=== PATIENT | male | born 1985 | race Caucasian/White ===

== ENCOUNTER 2017-12-28 20:18 | Emergency (ER) | payer MEDICAID, SELFPAY ==
[2017-12-28 20:19] VITALS: BP 146/97; PULSE 95; RESP 18; TEMP 36.7; O2SAT 98; BMI 25.1
--- NOTE | 2017-12-28 20:27 | EKG12_ITS ---
Test Reason : Blood Pressure : / mmHG Vent. Rate : 087 BPM Atrial Rate : 087 BPM P-R Int : 180 ms QRS Dur : 108 ms QT Int : 350 ms P-R-T Axes : 038 009 047 degrees QTc Int : 421 ms Normal sinus rhythm Normal ECG Confirmed by CECELIA BRENNER, YESIKA ([id number]), editor managing director ZANDER MASON ([id number]) on 01/07/2018 6:54:17 PM Referred By: Confirmed By:YESIKA RAI MD
--- NOTE | 2017-12-28 20:27 | RAD_ITS ---
STUDY: X-RAY CHEST REASON FOR EXAM: Male, 32 years old. TECHNIQUE: A single frontal view of the chest was obtained. COMPARISON: July 22, 2016 FINDINGS: The lungs are adequately aerated. There are no focal airspace opacities. There is no demonstrated pleural abnormality. The cardiac silhouette is normal in size. The mediastinum and hilar regions are unremarkable. Normal visualized pulmonary arteries. Normal visualized aortic arch and descending thoracic aorta. The thoracic spine is unremarkable. The visualized ribs, clavicles, and shoulders are unremarkable. There is no demonstrated abnormality of the visualized upper abdomen. RAD/Chest 1 View (Portable) IMPRESSION: No acute cardiopulmonary abnormalities. Electronically Signed: Jessie Meng MD at 21:23 EDT Tel Direct: [phone], Service support ,
[2017-12-28 20:44] LABS: Absolute Lymphocyte Count 2.65 X10^3/ul (0.83-4.51); Absolute Neutrophil Count 4.4 X10^3/uL (2.0-7.7); Basophil# 0.03 X10^3/uL; Basophil% 0.4 % (0-1); Eosinophils% 2.6 % (0-5); Hematocrit 45.3 % (40-54); Hemoglobin 15.7 g/dl (13.0-16.5); Lymphocyte # 2.65 X10^3/ul (4.0); Mean Corp Hgb Conc 34.7 g/gl (32-36); Mean Corpuscular Hgb 30.4 pg (27.0-32.0); Mean Corpuscular Volume 87.6 fL (80-94); Mean Platelet Vol. 10.7 fl (6.2-12.0); Monocyte# 0.52 X10^3/uL; Monocyte% 6.7 % (0-10); Neutrophil # 4.39 X10^3/uL (2.7-7.7); Neutrophil % 56.3 % (47-70); Platelet Count 251 K/mm3 (150-450); RBC Distribution Width CV 12.7 % (11.6-14.6); Red Blood Count 5.17 M/mm3 (4.6-6.2); White Blood Count 7.8 K/mm3 (4.4-11.0)
[2017-12-28 20:47] LABS: POSITIVE COUNT NO; POSITIVE DIFFERENTIAL NO; POSITIVE MORPHOLOGY NO
[2017-12-28 20:59] LABS: Anion Gap 9 (5-15); BUN 5 mg/dL (7-18); BUN/Creat Ratio 4.1 RATIO (10-20); Calcium,Total 8.7 mg/dL (8.5-10.1); Chloride 106 mmol/L (98-107); Creatinine, Serum 1.21 mg/dL (0.70-1.30); EST Glomerular Filtration Rate 73 mL/min (>60); Est Glom Filt Rate - Afr Amer 88 mL/min (>60); Estimated Creatinine Clearance 91.62 ml/min; Glucose 122 mg/dL (74-106); Potassium 3.3 mmol/L (3.5-5.1); Sodium Level 138 mmol/L (136-145)
[2017-12-28 22:21] VITALS: BP 123/80; PULSE 72; RESP 16; O2SAT 99
--- NOTE | 2017-12-28 22:39 | ED.VISSUMM ---
- ER Visit Summary Date of Service: 12/28/17 Chief Complaint: Chest pain History of Present Illness: The patient is a 32 M complaining of intermittent chest pain for months. Not associated with exertion. No history of DVT or PE. No hemoptysis. Not pleuritic. Not associated with exertion. No recent travel, surgery or mobilization. Patient does have a history of high cholesterol. And a family history of cardiac disease and his dad thinks was below 55. He is also a smoker. He has never had a stress test or cardiac catheterization. Physical Examination: Well-appearing young male. Vital signs are stable afebrile. Pulse ox 98% on room air no signs of hypoxia. HEENT exam unremarkable. Neck nontender no JVD. Lungs clear to auscultation bilaterally. Heart regular rate and rhythm no murmur. Rate in the 90s. Chest wall nontender. No ecchymosis or bruising. No subcu air. Abdomen is soft and nontender. Normal bowel sounds no peritoneal signs. Moving all 4 extremities. Neurovascular intact. Equal symmetrical radial pulses. Calves nontender without edema., Bilateral dorsi plantar flexion. Neurologically is awake alert without focal motor deficits. Back exam normal. Test Results: EKG sinus rhythm rate 87 with no acute signs of [place] or ischemia. Chest x-ray portable one view shows normal cardiac silhouette and mediastinum no acute abnormality read both by myself and radiologist. CBC normal. BMP shows potassium of 3.3. Creatinine 1.2. Normal anion gap. Troponin normal. Emergency Department Course and Treatment: Patient's history is atypical. This is not exertional chest pain. He has no risk factors for DVT or PE. His exam is unremarkable. His workup is negative. On repeat exam he is doing well at 2238. I discussed all test results with him. He is comfortable being discharged home with outpatient follow-up. Treatment Plan: Follow-up with your primary care physician for atypical chest pain. Disposition: Discharge Impression: Acute atypical chest pain of uncertain etiology This note was generated with [employer] dictation software. It may contain incorrect words, spelling, and punctuation that were not noted in review of the chart prior to signing ED Disposition - Plan for ED Patient: Chief Complaint: Chest Pain Referrals: Renetta Mccann NP-C [Primary Care Provider] -
--- NOTE | 2017-12-28 22:43 | ED.DCSUM_ITS ---
- ER Visit Summary Date of Service: 12/28/17 Chief Complaint: Chest pain History of Present Illness: The patient is a 32 M complaining of intermittent chest pain for months. Not associated with exertion. No history of DVT or PE. No hemoptysis. Not pleuritic. Not associated with exertion. No recent travel, surgery or mobilization. Patient does have a history of high cholesterol. And a family history of cardiac disease and his dad thinks was below 55. He is also a smoker. He has never had a stress test or cardiac catheterization. Physical Examination: Well-appearing young male. Vital signs are stable afebrile. Pulse ox 98% on room air no signs of hypoxia. HEENT exam unremarkable. Neck nontender no JVD. Lungs clear to auscultation bilaterally. Heart regular rate and rhythm no murmur. Rate in the 90s. Chest wall nontender. No ecchymosis or bruising. No subcu air. Abdomen is soft and nontender. Normal bowel sounds no peritoneal signs. Moving all 4 extremities. Neurovascular intact. Equal symmetrical radial pulses. Calves nontender without edema., Bilateral dorsi plantar flexion. Neurologically is awake alert without focal motor deficits. Back exam normal. Test Results: EKG sinus rhythm rate 87 with no acute signs of [place] or ischemia. Chest x-ray portable one view shows normal cardiac silhouette and mediastinum no acute abnormality read both by myself and radiologist. CBC normal. BMP shows potassium of 3.3. Creatinine 1.2. Normal anion gap. Troponin normal. Emergency Department Course and Treatment: Patient's history is atypical. This is not exertional chest pain. He has no risk factors for DVT or PE. His exam is unremarkable. His workup is negative. On repeat exam he is doing well at 2238. I discussed all test results with him. He is comfortable being discharged home with outpatient follow-up. Treatment Plan: Follow-up with your primary care physician for atypical chest pain. Disposition: Discharge Impression: Acute atypical chest pain of uncertain etiology This note was generated with [employer] dictation software. It may contain incorrect words, spelling, and punctuation that were not noted in review of the chart prior to signing ED Disposition - Plan for ED Patient: Chief Complaint: Chest Pain Referrals: Renetta Mccann NP-C [Primary Care Provider] -
--- NOTE | 2017-12-28 22:43 | ED.DEP ---
ED Disposition - Plan for ED Patient: Disposition: Home or Assisted Living Chief Complaint: Chest Pain Instructions: ED Chest Pain Atypical Unkn Cause Referrals: Renetta Mccann NP-C [Primary Care Provider] - As soon as possible Additional Instructions: All your tests tonight were normal. Call follow-up the primary care physician. Return to ER if you are feeling a lot worse.
[2017-12-28 22:51] VITALS: BP 120/77; PULSE 58; RESP 21; O2SAT 100
--- NOTE | 2017-12-28 22:52 | ED.RN ---
IV DC'ED, CATHETER INTACT, SMALL GAUZE DRESSING PLACED. DISCHARGE INSTRUCTIONS GIVEN TO AND REVIEWED WITH PATIENT, PATIENT DENIES QUESTIONS OR CONCERNS AND VOICES UNDERSTANDING OF DISCHARGE INSTRUCTIONS. PT AMBULATES OUT OF ROOM WITHOUT DIFFICULTY.
== END 2017-12-28 22:53 | disposition home or self-care (01) ==
PROVIDERS: Emergency Provider Emergency Medicine; Family Provider Nurse Practitioner Family; PCP Nurse Practitioner Family
DX: R07.89 Other chest pain (principal); E78.00 Pure hypercholesterolemia, unspecified; F17.200 Nicotine dependence, unspecified, uncomplicated; Z79.899 Other long term (current) drug therapy
CPT/HCPCS: 71045; 80048; 84484; 85025; 93005; 99284; A4216

== ENCOUNTER 2021-12-26 00:59 | Emergency (ER) | payer MEDICAID, SELFPAY ==
[2021-12-26 01:00] VITALS: BP 138/100; RESP 97; TEMP 36.7; O2SAT 97; BMI 26.7
--- NOTE | 2021-12-26 01:10 | RAD_ITS ---
EXAM: XR CHEST, 2 VIEWS CLINICAL INDICATION: chest pain TECHNIQUE: Frontal and lateral views of the chest. This report was created using [employer] report generation technology. COMPARISON: 12/28/2017. FINDINGS: LUNGS AND PLEURAL SPACES: Unremarkable. No consolidation or edema. No pneumothorax. No effusion. HEART: Unremarkable. Cardiac silhouette not enlarged. MEDIASTINUM: Central airways and mediastinal contour are unremarkable. BONES/JOINTS: Unremarkable. SOFT TISSUES: Unremarkable. RAD/Chest PA and Lateral IMPRESSION: No radiographic evidence of acute cardiopulmonary disease. Electronically Signed: Wiliam Mares MD at 2:06 EDT ,
--- NOTE | 2021-12-26 01:11 | EKG12_ITS ---
Test Reason : CP Blood Pressure : / mmHG Vent. Rate : 089 BPM Atrial Rate : 089 BPM P-R Int : 188 ms QRS Dur : 112 ms QT Int : 362 ms P-R-T Axes : 032 -07 027 degrees QTc Int : 440 ms Normal sinus rhythm Normal ECG Confirmed by TALAT BRENNER, ELENA ([id number]), publication editor DES LONDON ([id number]) on 12/26/2021 9:06:23 AM Referred By: EDGAR Confirmed By:ELENA GILLILAND MD
[2021-12-26 01:33] LABS: Absolute Lymphocyte Count 3.24 X10^3/uL (0.83-4.51); Absolute Neutrophil Count 4.5 X10^3/uL (2.0-7.7); Basophil# 0.04 X10^3/uL; Basophil% 0.5 % (0-1); Eosinophil# 0.23 X10^3/uL; Eosinophils% 2.6 % (0-5); Hemoglobin 14.5 g/dL (13.0-16.5); Lymphocyte # 3.24 X10^3/ul (0.83-4.51); Lymphocyte % 37.2 % (19-41); Mean Corp Hgb Conc 34.5 g/dL (32-36); Mean Corpuscular Hgb 30.5 pg (27.0-32.0); Mean Corpuscular Volume 88.2 fL (80-94); Mean Platelet Vol. 10.4 fl (6.2-12.0); Monocyte# 0.69 X10^3/uL; Monocyte% 7.9 % (0-10); NRBC Flagged by Analyzer 0 % (0-5); Neutrophil # 4.48 X10^3/uL (2.7-7.7); Neutrophil % 51.6 % (47-70); Platelet Count 250 K/mm3 (150-450); RBC Distribution Width CV 12.4 % (11.6-14.6); RBC Distribution Width SD 40.3 fl (35.1-43.9); Red Blood Count 4.76 M/mm3 (4.6-6.2); White Blood Count 8.7 K/mm3 (4.4-11.0)
[2021-12-26 01:58] LABS: ALB/GLOB Ratio 1.1 RATIO (0.9-2.4); AST(SGOT) 23 U/L (15-37); Alanine Aminotransfer ALT/SGPT 47 U/L (16-61); Albumin, Serum 3.7 g/dL (3.2-5.0); Alkaline Phosphatase 76 U/L (45-117); Anion Gap 7 (5-15); BUN 11 mg/dL (7-18); Calcium,Total 8.8 mg/dL (8.5-10.1); Chloride 103 mmol/L (98-107); Creatinine, Serum 1.22 mg/dL (0.70-1.30); EST Glomerular Filtration Rate 70 mL/min (>60); Est Glom Filt Rate - Afr Amer 85 mL/min (>60); Estimated Creatinine Clearance 90.11 ml/min; Globulin 3.5 g/dL (2.2-4.2); Glucose 127 mg/dL (74-106); Protein, Total 7.2 g/dL (6.4-8.2); Sodium Level 137 mmol/L (136-145); Troponin-I HS 3 pg/mL (3.0-78.0)
--- NOTE | 2021-12-26 02:07 | CT_ITS ---
EXAM: CT HEAD WITHOUT INTRAVENOUS CONTRAST CLINICAL INDICATION: headache TECHNIQUE: Multiple axial images were obtained of the head without intravenous contrast. This CT exam was performed using one or more of the following dose reduction techniques: automated exposure control, adjustment of the mA and/or kV according to patient size, and/or use of iterative reconstruction technique. This report was created using [employer] report generation technology. RADIATION DOSE: CTDIvol = 44.99 mGy, DLP = 829.85 mGy-cm. COMPARISON: None. FINDINGS: BRAIN AND EXTRA-AXIAL SPACES: Unremarkable. No intra- or extra-axial hemorrhage. No evidence of acute infarct. No intracranial mass or mass effect. There is preservation of the jerez/white matter interface. Posterior fossa structures are unremarkable. Ventricles are appropriate for age. No hydrocephalus. Basal cisterns are patent. BONES/JOINTS: Unremarkable. No discrete lytic or blastic abnormalities. SINUSES: Unremarkable as visualized. Clear. MASTOID AIR CELLS: Unremarkable. Clear. ORBITS: Visualized globes, extraocular muscles, optic nerves and retrobulbar fat appear unremarkable. CT/Brain/Head without Contrast IMPRESSION: Negative head/brain CT without intravenous contrast. Electronically Signed: Wiliam Mares MD at 2:32 EDT ,
[2021-12-26 03:00] VITALS: BP 134/93; PULSE 64; RESP 16; O2SAT 97
[2021-12-26 03:19] LABS: Troponin-I HS 5 pg/mL (3.0-78.0)
[2021-12-26] MEDS: Potassium Chloride Oral Tablet 20 MEQ 40 MEQ PO (03:22)
[2021-12-26 03:23] VITALS: BP 129/84; PULSE 88; RESP 18; O2SAT 99
--- NOTE | 2021-12-26 03:49 | EDS_ITS ---
HPI History of Present Illness Chief Complaint: Chest Pain Informant: patient Narrative Narrative: Patient is a 36-year-old male reports a remote history of A. fib after he passed out getting stitches, presenting with chest tightness. Patient says he is having intermittent episodes of a squeezing pain in his chest for the past month. Sometimes it happens at rest and sometimes with exertion. He also notes that he has had decreased stamina with his daily activities. He gets intermittent sharp pains in his temples. He denies any shortness of breath with laying down. Denies any palpitations or racing heartbeat. He states while at work today he had an episode where his left leg felt numb and he felt dizzy. This resolved on its own. Patient came to the emergency room to be evaluated further. Patient's notes that he has been having more stress lately and his left him within the last 3 weeks. Not sure if that is related. No other complaints at this time. PFSH PFS Home Medications NK 12/26/21 [History Last Taken Unknown] Allergy/AdvReac Type Severity Reaction Status Date / Time naproxen Allergy Vomiting Verified 12/26/21 01:04 Social History Smoking Status: Current every day smoker tobacco type: cigarettes ROS ROS ED Constitutional Constitutional ED: Denies chills or fever(s) Eyes Eyes: Denies blurry vision or change in vision Cardiovascular Cardiovascular: Reports as per HPI and chest pain Respiratory/Chest Respiratory/Chest: Reports dyspnea on exertion Gastrointestinal Gastrointestinal: Denies abdominal pain, nausea or vomiting Genitourinary Genitourinary ED: Denies dysuria Musculoskeletal Musculoskeletal: Denies arthralgias or myalgias Integumentary Denies rash Neurologic Neurologic: Reports headache(s); Denies paresthesias or weakness Psychiatric Psychiatric: Denies depression EXAM Physical Exam Const Vital Signs: 12/26/21 01:00 12/26/21 01:28 12/26/21 03:00 Temperature 98.1 F Temperature Source Temporal Pulse Rate 64 Respiratory Rate 97 H 16 Respiratory Effort Normal Non-Labored Blood Pressure 138/100 H 134/93 H Blood Pressure Mean 112 106 Pulse Ox 97 97 Oxygen Delivery Method Room Air Room Air 12/26/21 03:23 Temperature Temperature Source Pulse Rate 88 Respiratory Rate 18 Respiratory Effort Blood Pressure 129/84 H Blood Pressure Mean 99 Pulse Ox 99 Oxygen Delivery Method Room Air Positive well nourished and well developed General Appearance ED: well developed and NAD HEENT normocephalic and atraumatic Eyes PERRL and EOMs intact bilaterally Neck supple Chest Wall inspection of chest normal and palpation of chest normal Resp normal respiratory effort and clear to auscultation bilaterally Effort and Inspection: Negative for respiratory distress Cardio regular rate, regular rhythm and no murmurs GI normal to inspection, nondistended, normoactive bowel sounds Back/Spine no CVA tenderness Extremity normal to inspection General Extremety ED: Negative for edema or tenderness General Extremity: Negative for edema Neuro oriented x3 Sensorium / Orientation: awake and alert Motor Exam: Negative for general weakness Psych mental status grossly normal Mood & Affect: Negative for depressed Skin no rashes or lesions noted and no wounds Heart Score History: Slightly/Non-Suspicious ECG: Normal Age: </= 45 years Risk Factors: 1 or 2 Risk Factors Troponin: </= Normal Limit Score: 1 MDM MDM MDM Narrative Medical decision making narrative: Patient evaluated after an episode of left leg numbness, dizziness and intermittent chest pain for the past month. Patient is normal sinus rhythm in the emergency room. He appears nontoxic in no acute distress. He is PE RC negative I do not suspect PE as a cause of his symptoms. CBC and CMP are largely normal. His potassium is 3.0 and he is given oral potassium in the ER. He is mildly hyperglycemic with a glucose of 127. High since he troponin is 3 and 5. Chest x-rays not show any acute process. Head CT obtained given patient's vague symptoms and headache for the past month. This is negative for acute process. No signs of bleed, hydrocephalus or space- occupying mass. Patient counseled the exact cause of his symptoms is not clear however I believe he is safe to follow-up outpatient. Lab Data Attestation: I reviewed the patient's lab results. Labs: Laboratory Results - last 24 hr 12/26/21 12/26/21 12/26/21 01:30 01:30 02:50 WBC 8.7 RBC 4.76 Hgb 14.5 Hct 42.0 MCV 88.2 MCH 30.5 MCHC 34.5 RDW Std Deviation 40.3 RDW Coeff of Maddie 12.4 Plt Count 250 MPV 10.4 Immature Gran % (Auto) 0.200 Neut % (Auto) 51.6 Lymph % (Auto) 37.2 [place] % (Auto) 7.9 Eos % (Auto) 2.6 Baso % (Auto) 0.5 Absolute Neuts (auto) 4.5 Absolute Lymphs (auto) 3.24 Nucleated RBC % 0 Sodium 137 Potassium 3.0 L Chloride 103 Carbon Dioxide 27.0 Anion Gap 7 BUN 11 Creatinine 1.22 Estim Creat Clear Calc 90.11 Est GFR (MDRD) Af Amer 85 Est GFR (MDRD) Non-Af 70 BUN/Creatinine Ratio 9.0 L Glucose 127 H Calcium 8.8 Total Bilirubin 0.80 AST 23 ALT 47 Alkaline Phosphatase 76 Troponin I High Sens 3 5 Total Protein 7.2 Albumin 3.7 Globulin 3.5 Albumin/Globulin Ratio 1.1 Radiography Chest X-Ray - ED: 2 View, Read by ED Physician, Read by Radiologist and No Acute Disease Diagnostic Testing: Clinical Impression(s) from Imaging Studies Chest X-Ray 12/26/21 01:10 IMPRESSION: No radiographic evidence of acute cardiopulmonary disease. Electronically Signed: Wiliam Mares MD at 2:06 EDT , Brain CT 12/26/21 02:07 IMPRESSION: Negative head/brain CT without intravenous contrast. Electronically Signed: Wiliam Mares MD at 2:32 EDT , Rhythm Strip Rhythm Strip: Sinus Rhythm Rate: 89 Ectopy: None EKG Initial EKG: Attestation: I personally reviewed and interpreted this EKG as follows: Interpretation: Sinus Rhythm Comments: Normal sinus rhythm at a rate of 89 Normal axis Normal intervals Normal ST segments No change compared to prior EKG Discharge Plan Triage Chief Complaint: Chest Pain ED Provider: Kendra Yancey Dx/Rx/DC Orders Clinical Impression: Chest pain of unknown etiology, Hypokalemia Instructions: ED Chest Pain, Uncertain Cause, ED Hypokalemia Prescriptions: No Action NK RF: 0 Primary Care Provider: Renetta Mccann NP Referrals: Renetta Mccann THREAD GRINDER TOOL, THREAD GRINDER TOOL-C [Primary Care Provider] - Disposition Disposition: Home, Self Care
== END 2021-12-26 03:54 | disposition home or self-care (01) ==
PROVIDERS: Emergency Provider Emergency Medicine; PCP Nurse Practitioner Family; Visit Provider Emergency Medicine
DX: R07.9 Chest pain, unspecified (principal); R51.9 Headache, unspecified; E87.6 Hypokalemia; F17.210 Nicotine dependence, cigarettes, uncomplicated
CPT/HCPCS: 70450; 71046; 80053; 84484; 85025; 93005; 99285; A4216

== ENCOUNTER 2022-12-28 10:02 | Emergency (ER) | payer MEDICAID, SELFPAY ==
[2022-12-28 10:03] VITALS: BP 115/83; PULSE 86; RESP 14; TEMP 36.3; O2SAT 100; BMI 23.8
--- NOTE | 2022-12-28 10:37 | RAD_ITS ---
INDICATION: trauma, punctue wound EXAMINATION/TECHNIQUE: X-RAY - LEFT XR Tibia/Fibula 2 Views 4 VIEWS COMPARISON: FINDINGS: SOFT TISSUES: No soft tissue swelling or gas. No radiopaque foreign body. BONES/JOINTS: No acute fracture or subluxation.. Normal alignment. Preservation of the joint space.. No sclerotic or destructive changes observed. RAD/Tibia & Fibula 2 Views IMPRESSION: Negative. Electronically Signed: Immanuel Aleman MD, ANGELLA at 11:48 EDT ,
--- NOTE | 2022-12-28 10:37 | EKG12_ITS ---
Test Reason : TRAUMA Blood Pressure : / mmHG Vent. Rate : 079 BPM Atrial Rate : 000 BPM P-R Int : 000 ms QRS Dur : 102 ms QT Int : 368 ms P-R-T Axes : 000 025 052 degrees QTc Int : 421 ms Atrial fibrillation Abnormal ECG Confirmed by TALAT BRENNER, ELENA ([id number]), editorial assistant DES LONDON ([id number]) on 12/31/2022 8:36:20 AM Referred By: Confirmed By:ELENA GILLILAND MD
--- NOTE | 2022-12-28 10:37 | RAD_ITS ---
INDICATION: trauma EXAMINATION/TECHNIQUE: X-RAY - RIGHT XR Shoulder Min 2 Views 4 VIEWS COMPARISON: FINDINGS: SOFT TISSUES: No soft tissue swelling or gas. No radiopaque foreign body. BONES/JOINTS: Comminuted fracture of the right scapula. Proximal humerus and distal clavicle appear intact. RAD/Shoulder min 2 Views IMPRESSION: Comminuted fracture of the right scapula. Electronically Signed: Immanuel Aleman MD, ANGELLA at 11:48 EDT ,
--- NOTE | 2022-12-28 10:38 | CT_ITS ---
INDICATION: Trauma EXAMINATION: CT CERVICAL SPINE - CT Spine Cervical W/O Contrast Injection TECHNIQUE: Helically acquired images were obtained of the cervical spine. 2D reformatted images were reviewed. A radiation dose optimization technique was used for this scan. IV Contrast dosage and agent: None. RADIATION DOSAGE (If Supplied By Facility): CTDIvol = ( 23.03 ) mGy, DLP = ( 468.00 ) mGycm COMPARISON: FINDINGS: VERTEBRAE: No fracture or traumatic subluxation. No discrete lytic or blastic abnormality. Normal alignment. Normal craniocervical junction and cervicothoracic junction. DISCS and SPINAL CANAL: Moderate loss of disc space height C4-5 with mild disc osteophyte. No critical stenosis. NECK SOFT TISSUES: No prevertebral soft tissue swelling. There is no cervical adenopathy. LUNG APICES: Clear. CT/Spine Cervical without Contras IMPRESSION: No evidence of acute cervical spinal fracture or spondylolisthesis. Electronically Signed: Immanuel Aleman MD, ANGELLA at 11:41 EDT ,
--- NOTE | 2022-12-28 10:38 | CT_ITS ---
STUDY: CT CHEST, ABDOMEN T PELVIS WITH CONTRAST REASON FOR EXAM: Male, 37 years old. trauma -- TRAUMA ONLY: IV Contrast. Dont wait for creatinine RADIATION DOSAGE (If Supplied By Facility): CTDIvol = ( 19.21 ) mGy, DLP = ( 1736.83 ) mGycm TECHNIQUE: Transaxial imaging was performed following intravenous administration of [id number] 100ML. Individualized dose optimization techniques were used for this CT. COMPARISON: FINDINGS: CHEST The lungs demonstrate tiny subpleural bleb at the right lung base measuring 1.5 cm transverse by 0.5 cm AP. Mild right lower lobe dependent atelectasis. There is no demonstrated pleural abnormality. Normal heart and pericardium. Normal mediastinum. Normal hilar regions. Normal unenhanced pulmonary arteries. Normal aorta arch and descending thoracic aorta. There is a comminuted fracture of the right scapula involving its middle and medial thirds. There is no demonstrated abnormality of the visualized upper abdomen. ABDOMEN The visualized lung bases are unremarkable. The visualized portions of the heart are within normal limits. Normal liver. Normal gallbladder and extrahepatic biliary system. Normal spleen. Normal pancreas. Normal bilateral adrenal glands. Normal right kidney. Normal left kidney. Normal visualized stomach. Normal small intestine. Normal colon. The appendix is visualized and appears normal. Normal abdominal aorta. Normal inferior vena cava. Normal retroperitoneum. Normal abdominal wall. Normal osseous structures. PELVIS Normal urinary bladder. Normal visualized small intestine. Normal visualized colon. There is no pelvic fluid. There is no pelvic lymphadenopathy or mass lesion. Normal visualized pelvic arteries. Normal abdominal wall. Normal osseous structures. CT/CT Chest, Abd, Pel w/Contrast IMPRESSION: Comminuted fracture of the right scapula. Subpleural bleb right lung base with mild right lower lobe dependent atelectasis. Electronically Signed: Immanuel Aleman MD, ANGELLA at 11:46 EDT ,
--- NOTE | 2022-12-28 10:38 | CT_ITS ---
INDICATION: Trauma EXAMINATION: CT BRAIN - CT Head or Brain W/O Contrast Injection TECHNIQUE: Multiple axial images were obtained of the head without intravenous contrast. A radiation dose optimization technique was used for this scan. IV Contrast dosage and agent: None. RADIATION DOSAGE (If Supplied By Facility): CTDIvol = ( 44.99 ) mGy, DLP = ( 863.60 ) mGycm COMPARISON: FINDINGS: BRAIN PARENCHYMA: No intra- or extra-axial hemorrhage. No evidence of acute infarct. No intracranial mass or mass effect. There is preservation of the jerez/white matter interface. Posterior fossa structures are unremarkable. CSF SPACES: Appropriate for age. No hydrocephalus. Basal cisterns are patent. CALVARIUM, SKULL BASE, PARANASAL SINUSES AND MASTOID AIR CELLS: Clear. No discrete lytic or blastic abnormalities. ORBITS: Both globes, extraocular muscles, optic nerves and retrobulbar fat appear unremarkable. ASPECTS Score for Acute Strokes: 10 CT/Brain/Head without Contrast IMPRESSION: Negative Brain CT without contrast. Electronically Signed: Immanuel Aleman MD, ANGELLA at 11:38 EDT ,
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
[2022-12-28] MEDS: 0.9% Normal Saline 1,000 ML 999 ML IV (10:48)
[2022-12-28] MEDS: fentaNYL 100 MCG/2 ML Ampul 50 MCG IV (10:56)
[2022-12-28] MEDS: Diphth,Pertuss(Acell),Tet Vac 0.5 ML Vial IM (10:57)
[2022-12-28] MEDS: Ondansetron 4 MG/2 ML Vial IV (10:57)
[2022-12-28 11:01] VITALS: BP 129/80; PULSE 81; RESP 16; O2SAT 100
[2022-12-28 11:02] LABS: Absolute Lymphocyte Count 2.01 X10^3/uL (0.83-4.51); Absolute Neutrophil Count 4.3 X10^3/uL (2.0-7.7); Basophil# 0.04 X10^3/uL; Basophil% 0.6 % (0-1); Eosinophil# 0.27 X10^3/uL; Eosinophils% 3.8 % (0-5); Hematocrit 43.9 % (40-54); Hemoglobin 14.6 g/dL (13.0-16.5); Lymphocyte # 2.01 X10^3/ul (0.83-4.51); Lymphocyte % 28.2 % (19-41); Mean Corp Hgb Conc 33.3 g/dL (32-36); Mean Corpuscular Hgb 30.1 pg (27.0-32.0); Mean Corpuscular Volume 90.5 fL (80-94); Mean Platelet Vol. 10.3 fl (6.2-12.0); NRBC Flagged by Analyzer 0 % (0-5); Neutrophil # 4.29 X10^3/uL (2.7-7.7); Neutrophil % 60.1 % (47-70); Platelet Count 233 K/mm3 (150-450); RBC Distribution Width CV 12.5 % (11.6-14.6); RBC Distribution Width SD 41.1 fl (35.1-43.9); Red Blood Count 4.85 M/mm3 (4.6-6.2); White Blood Count 7.1 K/mm3 (4.4-11.0)
[2022-12-28 11:08] LABS: Prothrombin Time (Protime)PT. 12.7 SECONDS (11.7-14.9)
[2022-12-28 11:09] LABS: Partial Thromboplast Time 26.7 Seconds (24.1-36.2)
[2022-12-28 11:12] LABS: AST(SGOT) 28 U/L (15-37); Alanine Aminotransfer ALT/SGPT 32 U/L (16-61); Albumin, Serum 3.5 g/dL (3.2-5.0); Alkaline Phosphatase 71 U/L (45-117); Anion Gap 7 (5-15); BUN 12 mg/dL (7-18); BUN/Creat Ratio 9.6 RATIO (10-20); Bilirubin, Direct 0.13 mg/dL (0.00-0.30); Calcium,Total 8.5 mg/dL (8.5-10.1); Chloride 105 mmol/L (98-107); Creatinine, Serum 1.25 mg/dL (0.70-1.30); EST Glomerular Filtration Rate 68 mL/min (>60); Est Glom Filt Rate - Afr Amer 82 mL/min (>60); Estimated Creatinine Clearance 81.92 ml/min; Globulin 3.2 g/dL (2.2-4.2); Glucose 206 mg/dL (74-106); Potassium 3.5 mmol/L (3.5-5.1); Protein, Total 6.7 g/dL (6.4-8.2); Sodium Level 139 mmol/L (136-145)
[2022-12-28 11:40] LABS: Alcohol, Blood (Medical)-Serum < 3.0 mg/dL
[2022-12-28 12:00] VITALS: BP 129/80; PULSE 77; RESP 12; O2SAT 100
[2022-12-28 12:09] LABS: Bacteria 0 SEEN /hpf (None Seen); Mucous, Urine 0 SEEN /hpf (<or=2+); Red Blood Cells-Urine 0 SEEN /hpf (0-5); Squamous Epithelial Cells - UA 0 SEEN /hpf (0-5); White Blood Cells 0 SEEN /hpf (0-5)
[2022-12-28 12:19] LABS: Color, Urine Yellow (Yellow); Glucose, Dipstick 250 mg/dl (Normal); Ketone-Dipstick Negative (Negative); Leukocyte Esterase-Dipstick Negative /ul (Negative); Nitrite-Dipstick Negative (Negative); Occult Blood-Urine 10 /ul (Negative); Protein-Dipstick Negative (Negative); Specific Gravity, Urine 1.015 (1.002-1.030); Urine Bilirubin Dipstick Negative (Negative); Urine Clarity Clear (Clear); Urine Urobilinogen Normal (Normal)
[2022-12-28] MEDS: Morphine 4 MG/ML Syringe IV (12:32)
--- NOTE | 2022-12-28 13:39 | NURSING ---
CALLED PHYSICIANS TO SET UP TRANSFER TO [facility]-- ETA GIVEN IS 90 MINUTES--1500
[2022-12-28 14:37] VITALS: BP 110/74; PULSE 68; RESP 17; O2SAT 99
[2022-12-28] MEDS: HYDROmorphone 0.5 MG/0.5 ML SYRINGE IV (14:37)
[2022-12-28] MEDS: Ketorolac 15 MG/ML Vial IV (14:38)
[2022-12-28 15:00] VITALS: RESP 16
== END 2022-12-28 15:47 | disposition short-term general hospital (02) ==
PROVIDERS: Emergency Provider Emergency Medicine; PCP Nurse Practitioner Family; Visit Provider Emergency Medicine
DX: S42.101A Fracture of unspecified part of scapula, right shoulder, initial encounter for closed fracture (principal); I48.91 Unspecified atrial fibrillation; V28.09XA Other motorcycle driver injured in noncollision transport accident in nontraffic accident, initial encounter; Y93.89 Activity, other specified; F17.210 Nicotine dependence, cigarettes, uncomplicated
CPT/HCPCS: 70450; 71260; 72125; 73030; 73590; 74177; 80048; 80076; 81001; 82077; 85025; 85610; 85730; 86850; 86900; 86901; 90715; 93005; 96361; 96374; 96375; 99285; J7030; Q9967; A4216; J2405

== ENCOUNTER → 2023-02-27 | Outpatient (CLI) | payer MEDICAID, SELFPAY ==
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
[2023-02-27 10:43] LABS: Absolute Lymphocyte Count 1.69 X10^3/uL (0.83-4.51); Absolute Neutrophil Count 2.7 X10^3/uL (2.0-7.7); Basophil# 0.04 X10^3/uL; Basophil% 0.8 % (0-1); Eosinophil# 0.26 X10^3/uL; Hematocrit 47.4 % (40-54); Hemoglobin 16.1 g/dL (13.0-16.5); Lymphocyte # 1.69 X10^3/ul (0.83-4.51); Lymphocyte % 32.3 % (19-41); Mean Corpuscular Hgb 30.7 pg (27.0-32.0); Mean Corpuscular Volume 90.3 fL (80-94); Mean Platelet Vol. 10.2 fl (6.2-12.0); Monocyte# 0.59 X10^3/uL; Monocyte% 11.3 % (0-10); NRBC Flagged by Analyzer 0 % (0-5); Neutrophil # 2.65 X10^3/uL (2.7-7.7); Neutrophil % 50.4 % (47-70); Platelet Count 264 K/mm3 (150-450); RBC Distribution Width CV 12.7 % (11.6-14.6); RBC Distribution Width SD 41.9 fl (35.1-43.9); Red Blood Count 5.25 M/mm3 (4.6-6.2); White Blood Count 5.2 K/mm3 (4.4-11.0)
[2023-02-27 11:08] LABS: Hemoglobin A1c 5.4 % (3.8-5.6)
[2023-02-27 11:22] LABS: AST(SGOT) 19 U/L (15-37); Alanine Aminotransfer ALT/SGPT 29 U/L (16-61); Albumin, Serum 3.7 g/dL (3.2-5.0); Alkaline Phosphatase 89 U/L (45-117); Anion Gap 3 (5-15); BUN 8 mg/dL (7-18); BUN/Creat Ratio 7.5 RATIO (10-20); Calcium,Total 8.9 mg/dL (8.5-10.1); Chloride 107 mmol/L (98-107); Cholesterol 188 mg/dL (200); Creatinine, Serum 1.06 mg/dL (0.70-1.30); EST Glomerular Filtration Rate 82 mL/min (>60); Est Glom Filt Rate - Afr Amer 100 mL/min (>60); Globulin 3.8 g/dL (2.2-4.2); Glucose 104 mg/dL (74-106); High Density Lipoprotein 32 mg/dL; Potassium 4.2 mmol/L (3.5-5.1); Protein, Total 7.5 g/dL (6.4-8.2); Sodium Level 138 mmol/L (136-145); Triglycerides 314 mg/dL; Very Low Density Lipoprotein 63 mg/dL (5-40)
== END | disposition home or self-care (01) ==
LOC: LAB 09:51
PROVIDERS: PCP Nurse Practitioner Family; Referring Provider Nurse Practitioner Family; Visit Provider Nurse Practitioner Family
DX: Z00.00 Encounter for general adult medical examination without abnormal findings (principal); F15.10 Other stimulant abuse, uncomplicated; I10 Essential (primary) hypertension; K21.9 Gastro-esophageal reflux disease without esophagitis; E78.2 Mixed hyperlipidemia; R73.03 Prediabetes; M25.571 Pain in right ankle and joints of right foot; M25.572 Pain in left ankle and joints of left foot; G89.29 Other chronic pain; S42.101D Fracture of unspecified part of scapula, right shoulder, subsequent encounter for fracture with routine healing; V29.99XD Rider (driver) (passenger) of other motorcycle injured in unspecified traffic accident, subsequent encounter
CPT/HCPCS: 36415; 73030; 73610; 73630; 80053; 80061; 83036; 85025

== ENCOUNTER 2023-03-10 16:30 | Outpatient (RCR) | payer MEDICAID, SELFPAY ==
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
== END 2023-03-10 19:00 | disposition home or self-care (01) ==
LOC: PT 16:30
PROVIDERS: PCP Nurse Practitioner Family; Referring Provider Orthopaedic Surgery Sports Medicine; Visit Provider Orthopaedic Surgery Sports Medicine
DX: S42.101D Fracture of unspecified part of scapula, right shoulder, subsequent encounter for fracture with routine healing (principal)
CPT/HCPCS: 97161; 97164

== ENCOUNTER → 2023-05-17 | Outpatient (CLI) | payer MEDICAID, SELFPAY ==
--- NOTE | 2023-05-17 10:04 | MRI_ITS ---
INDICATION: pain, rule out cuff tear EXAMINATION: MRI - RIGHT MR Shoulder W/O Contrast TECHNIQUE: Multiplanar and multisequence MR images of the shoulder. IV Contrast Dosage and Agent: None. COMPARISON: FINDINGS: BONE: No fracture or abnormal bone marrow signal. ACROMIOCLAVICULAR JOINT: Mild acromioclavicular hypertrophy. Mild distal inferior acromial spurring produce mild impression of the proximal fibers of the supraspinatus portion of the conjoint tendon. SUBACROMIAL-SUBDELTOID SPACE: No bursal fluid. GLENOHUMERAL JOINT: Articular cartilage intact. No joint effusion. No rotator interval edema. ROTATOR CUFF: The rotator cuff is intact. There is mild tendinopathy of the distal one third of the rotator cuff. LABRUM: Intact, limited evaluation on non-arthrographic exam. BICEPS TENDON: Mild bicipital tenosynovitis. The extra-articular biceps tendon is in the bicipital groove. The intra-articular biceps tendon is normal. OTHER SOFT TISSUES: Unremarkable. MRI/Upper Ext Joint Only(Routine) IMPRESSION: Mild tendinopathy of the distal supraspinatus. Mild bicipital tenosynovitis. Mild acromioclavicular hypertrophy and distal inferior acromial spurring with mild impingement. Electronically Signed: Immanuel Aleman MD at 13:07 EDT ,
== END | disposition home or self-care (01) ==
LOC: MRI 09:45
PROVIDERS: PCP Nurse Practitioner Family; Visit Provider Orthopaedic Surgery Sports Medicine
DX: S42.101A Fracture of unspecified part of scapula, right shoulder, initial encounter for closed fracture (principal); M25.511 Pain in right shoulder
CPT/HCPCS: 73221

== ENCOUNTER → 2024-10-22 | Outpatient (CLI) | payer MEDICAID, SELFPAY ==
--- NOTE | 2024-10-22 11:40 | RAD_ITS ---
PROCEDURE: SHOULDER MIN 2 VIEWS 10/22/2024 REASON FOR EXAM: PAIN OF RIGHT SHOULDER REGION TECHNIQUE: Four views right shoulder COMPARISON: 03/13/2023, 02/27/2023 and 12/28/2022 FINDINGS: No acute fracture or dislocation. Now old appearing right scapular body fracture again noted. The joint spaces appear within limits. The visualized right lung appears clear. RAD/Shoulder min 2 Views IMPRESSION: No acute fracture or dislocation. Now old appearing right scapular body fractur e again noted. The joint spaces appear within limits. Reading Location: [id number]
== END | disposition home or self-care (01) ==
LOC: RAD 11:33
PROVIDERS: PCP Nurse Practitioner Family; Referring Provider Nurse Practitioner Family; Visit Provider Nurse Practitioner Family
DX: M25.511 Pain in right shoulder (principal)
CPT/HCPCS: 73030